=== PATIENT | female | born 1970 | race Caucasian/White ===

== ENCOUNTER 2017-05-30 17:00 | Emergency (ER) | payer MEDICAID ==
[2017-05-30 17:07] VITALS: TEMP 98.4
--- NOTE | 2017-05-30 17:50 | EDPHY ---
H & P Stated Complaint: Pian in left calf, concerned about a DVT. Time Seen by Provider: 05/30/17 17:50 HPI/ROS: CHIEF COMPLAINT: Left calf pain, family history of DVT HISTORY OF PRESENT ILLNESS: The patient presents to the ED with a several day history of left calf pain. The patient reports no history of trauma. Her symptoms are worsened with movement and exertion. She denies any associated numbness or weakness. The patient reports her mother has a history of PE. She has never been screen for familial hypercoagulable states. She denies prolonged immobilization. She denies recent surgery. The patient denies significant past medical history. She denies additional acute complaints. She rates the pain in her calf is a 1/10. REVIEW OF SYSTEMS: A comprehensive 10 point review of systems is otherwise negative aside from elements mentioned in the history of present illness. Source: Patient Exam Limitations: No limitations - Personal History LMP (Females 10-55): Now Current Tetanus Diphtheria and Acellular Pertussis (TDAP): Yes - Medical/Surgical History Hx Asthma: No Hx Chronic Respiratory Disease: No Hx Diabetes: No Hx Cardiac Disease: No Hx Renal Disease: No Hx Cirrhosis: No Hx Alcoholism: No Hx HIV/AIDS: No Hx Splenectomy or Spleen Trauma: No Other PMH: ANXIETY/DEPRESSION - Social History Smoking Status: Never smoked - Physical Exam Exam: General Appearance: Alert, no distress Eyes: Pupils equal and round no pallor or injection ENT, Mouth: Mucous membranes moist Respiratory: There are no retractions, lungs are clear to auscultation Cardiovascular: Regular rate and rhythm Gastrointestinal: Abdomen is soft and nontender, no masses, bowel sounds normal Neurological: 5/5 strength all 4 extremities, sensation grossly intact to light touch Skin: Warm and dry, no rashes Musculoskeletal: Neck is supple nontender Extremities: Tenderness to palpation left calf, no asymmetry, 2+ dorsalis pedis and posterior tibial pulses noted bilaterally Constitutional: Initial Vital Signs Temperature (C) 36.9 C 05/30/17 17:05 Heart Rate 96 05/30/17 17:05 Respiratory Rate 16 05/30/17 17:05 Blood Pressure 128/90 H 05/30/17 17:05 O2 Sat (%) 95 05/30/17 17:05 O2 Delivery Mode Room Air Allergies/Adverse Reactions: morphine Allergy (Verified 07/26/15 12:57) Home Medications: Medication Instructions Recorded traZODONE 07/26/15 Medical Decision Making - Diagnostics Imaging Results: Imaging Impressions Extremity Venous Study 05/30/17 17:50 Impression: No evidence of deep vein thrombosis in the left lower extremity. Results discussed with Dr. Wes Salomon. ED Course/Re-evaluation: The patient presents to the ED for evaluation of left calf pain. The patient had no appreciable asymmetry noted on exam. She is noted to have a brisk dorsalis pedis and posterior tibial pulse. She is neurologically intact. The patient was taken for lower extremity ultrasound which demonstrates no evidence of a DVT. The patient has been reassured at this point time. I have recommend a repeat ultrasound in 2 weeks for any ongoing symptoms. She should return to the ED sooner for increasing pain or other concerns. The patient was re- evaluated at 7:15 p.m. and is in no acute distress. She continues to be neurologically intact and understands her discharge instructions. Differential Diagnosis: Differential diagnosis considered includes myofascial strain, Aranda cyst, DVT, superficial thrombophlebitis Departure - Departure Disposition: Home, Routine, Self-Care Clinical Impression: Pain of left calf Condition: Good Instructions: Musculoskeletal Pain (ED) Additional Instructions: 1. Your ultrasound demonstrates no evidence of a DVT or other significant finding. 2. Tylenol and ibuprofen as needed for pain. 3. Please return to the ED for any increasing pain, swelling, redness, numbness , fever or other concerns. 4. I do recommend a repeat ultrasound in 2 weeks for any ongoing symptoms to exclude the development of a blood clot. 5. Please follow up with your primary care provider as needed Referrals: Vincent Russell MD [Primary Care Provider] - As per Instructions
[2017-05-30 19:23] VITALS: BP 135/70; PULSE 77; RESP 18; O2SAT 96
== END 2017-05-30 19:22 | disposition home or self-care (01) ==
DX: M79.605 Pain in left leg (principal)

== ENCOUNTER 2017-08-01 14:08 | Emergency (ER) | payer MEDICAID ==
--- NOTE | 2017-08-01 14:28 | EDPHY ---
H & P Stated Complaint: Left Flank Pain, Freq Urine Time Seen by Provider: 08/01/17 14:27 HPI/ROS: HPI: This is a 46-year-old female who presents with Chief Complaint: Left Flank Pain, Freq Urine Location: Left flank Quality: Sharp, pain Duration: Starting this morning Signs and Symptoms: no fever, + nausea, no vomiting, no hematemesis, no blood in stool, no abdominal bloating, no diarrhea, no back pain, + decreased urination, + urinary frequency, no burning with urination, no vaginal bleeding/ discharge, no indigestion, no chest pain, no shortness of breath Timing: Acute Severity: Moderate Context: Reports that she woke up this morning and had sudden onset of left flank, sharp, nonradiating pain has not stopped over the last 3-5 hour. She reports that she noticed that she has increased urinary frequency and decreased amount of urination. Denies burning with urination/hematuria. Reports that she has had a urinary tract infection in the past but has been sometime. Denies fever/vomiting/diarrhea. She did feel nauseous with the pain. No history of kidney stones. Patient had a bowel movement this morning. History of . [id number] pain medications with mild relief. Denies any recent injury or increased physical activity. No history of low back pain. Modifying Factors: See above Comment: ROS: see HPI Constitutional: No fever, no chills, no weight loss Eyes: No blurred vision Respiratory: No shortness of breath, no cough Cardiovascular: No chest pain, no palpitations Gastrointestinal: No nausea, no vomiting, no diarrhea, no hematemesis, no blood in stool Genitourinary: No dysuria, no blood in urine Extremities: No myalgias, no edema Neurologic: No weakness, no numbness Skin: No rashes, no petechiae Hematologic: No bruising, no bleeding MEDICAL/SURGICAL/SOCIAL HISTORY: Medical history: Anxiety, depression, hypothyroidism Surgical history: Denies Social history: Employed. . CONSTITUTIONAL: Nontoxic-appearing, polite and cooperative, adult white female awake and alert, no obvious distress HEENT: Atraumatic and normocephalic. NECK: supple, no midline tenderness, flexion 45 degrees, extension 45 degrees, right and left lateral flexion 45 degrees. No meningismus. Cardiovascular: Normal S1/S2, regular rate, regular rhythm, without murmur rub or gallop. PULMONARY/CHEST: Symmetrical and nontender. no crepitus. Clear to auscultation bilaterally. Good air movement. No accessory muscle usage. ABDOMEN: Soft, nondistended, mild left flank tenderness, bowel sounds hypoactive x4, no peritoneal signs, no organomegaly, no ecchymosis. PELVIC: no pain with rocking; bilateral hips flexion 125 degrees, extension 30 degrees, with no pain internal rotation and no pain external rotation. BACK: No midline tenderness, no paraspinous spasm, deep tendon reflexes 2/2, no pain with straight leg raise EXTREMITIES: 2/2 pulses, strength 5/5, DIP/PIP/MCP flexion/extension intact with good light touch sensation. no deformities, no clubbing, no cyanosis or edema. NEUROLOGICAL: no focal neuro deficits. GCS 15. Light touch sensation intact. SKIN: Warm and dry, no erythema. no rash. Good capillary refill. Source: Patient Exam Limitations: No limitations - Personal History LMP (Females 10-55): 8-14 Days Ago Current Tetanus Diphtheria and Acellular Pertussis (TDAP): Yes - Medical/Surgical History Hx Asthma: No Hx Chronic Respiratory Disease: No Hx Diabetes: No Hx Cardiac Disease: No Hx Renal Disease: No Hx Cirrhosis: No Hx Alcoholism: No Hx HIV/AIDS: No Hx Splenectomy or Spleen Trauma: No Other PMH: ANXIETY/DEPRESSION, Hypothyroid - Social History Smoking Status: Never smoked Constitutional: Initial Vital Signs Temperature (C) 37.4 C 08/01/17 14:21 Heart Rate 79 08/01/17 14:21 Respiratory Rate 18 08/01/17 14:21 Blood Pressure 128/98 H 08/01/17 14:21 O2 Sat (%) 97 08/01/17 14:21 O2 Delivery Mode Room Air Allergies/Adverse Reactions: morphine Allergy (Verified 07/26/15 12:57) Home Medications: Medication Instructions Recorded traZODONE 07/26/15 Cyclobenzaprine [Flexeril 10 MG 10 mg PO TID PRN #15 tab 08/01/17 (*)] Levothyroxine 08/01/17 Lidocaine 5% [Lidoderm 5% Patch 1 ea TD DAILY #6 patch 08/01/17 (*)] Medical Decision Making - Diagnostics Imaging Results: Imaging Impressions Abdomen/Pelvis CT 08/01/17 14:49 Impression: 1. No visible etiology for the patient's pain. 2. Fibroid uterus. 3. Diffuse fatty infiltration of the liver. 4. Additional findings, as above. Findings discussed with Rupinder Jerry on 08/01/2017 at 15:19. Attention: This CT examination is specifically designed to evaluate patients who are clinically suspected of having acute obstructive uropathy. This examination does not use radiographic contrast, and as such, provides only a limited evaluation of the abdomen, pelvis and retroperitoneum. If there is further clinical suspicion for pathological conditions other than obstructive uropathy, a complete CT evaluation of the abdomen and pelvis utilizing intravenous and oral contrast should be considered. ED Course/Re-evaluation: Labs, urinalysis, CT abdomen and pelvis scan without contrast, IV fluids, IV medications ordered Given 1 L normal saline, IV Toradol, IV Zofran Called by Radiology who advised that CT abdomen and pelvis scan is grossly unremarkable and shows no signs of acute intra-abdominal abnormality. No stone appreciated. + fibroid uterus. [employer] films show some stool in the area of pain. Urinalysis shows no signs of infection or blood. Labs reviewed and completely unremarkable. Patient believes that now she may have slept funny last night. Lidoderm patch applied. Patient is ambulatory without any deficits. No signs of neurovascular compromise/tenting of skin/compartment syndrome/extremities and joints examined above and below area of concern and are neurovascularly intact. Given muscle relaxers and advised to take NSAIDs. This patient was seen under the supervision of my primary supervising physician. I evaluated care for this patient independently. Differential Diagnosis: Abdominal pain including but not limited to appendicitis, cholecystitis, ureterolithiasis, abdominal gas, gastritis and urinary tract infection. - Data Points Laboratory Results: Laboratory Results 08/01/17 15:32 08/01/17 15:32 08/01/17 08/01/17 08/01/17 15:32 15:32 15:32 WBC 7.13 10^3/uL 10^3/uL (3.80-9.50) RBC 4.59 10^6/uL 10^6/uL (4.18-5.33) Hgb 15.1 g/dL g/dL (12.6-16.3) Hct 43.3 % % (38.0-47.0) MCV 94.3 fL fL (81.5-99.8) MCH 32.9 pg pg (27.9-34.1) MCHC 34.9 g/dL g/dL (32.4-36.7) RDW 12.4 % % (11.5-15.2) Plt Count 283 10^3/uL 10^3/uL (150-400) MPV 8.6 fL L fL (8.7-11.7) Neut % (Auto) 52.6 % % (39.3-74.2) Lymph % (Auto) 38.7 % % (15.0-45.0) [place] % (Auto) 7.0 % % (4.5-13.0) Eos % (Auto) 0.8 % % (0.6-7.6) Baso % (Auto) 0.8 % % (0.3-1.7) Nucleat RBC Rel Count 0.0 % % (0.0-0.2) Absolute Neuts (auto) 3.74 10^3/uL 10^3/uL (1.70-6.50) Absolute Lymphs (auto) 2.76 10^3/uL 10^3/uL (1.00-3.00) Absolute Monos (auto) 0.50 10^3/uL 10^3/uL (0.30-0.80) Absolute Eos (auto) 0.06 10^3/uL 10^3/uL (0.03-0.40) Absolute Basos (auto) 0.06 10^3/uL 10^3/uL (0.02-0.10) Absolute Nucleated RBC 0.00 10^3/uL 10^3/uL (0-0.01) Immature Gran % 0.1 % % (0.0-1.1) Immature Gran # 0.01 10^3/uL 10^3/uL (0.00-0.10) Sodium 140 mEq/L mEq/L (135-145) Potassium 4.4 mEq/L mEq/L (3.5-5.2) Chloride 101 mEq/L mEq/L (97-110) Carbon Dioxide 26 mEq/l mEq/l (22-31) Anion Gap 13 mEq/L mEq/L (8-16) BUN 13 mg/dL mg/dL (7-23) Creatinine 0.8 mg/dL mg/dL (0.6-1.0) Estimated GFR > 60 Glucose 99 mg/dL mg/dL (70-100) Calcium 10.0 mg/dL mg/dL (8.5-10.4) Total Bilirubin 0.6 mg/dL mg/dL (0.1-1.4) Conjugated Bilirubin 0.2 mg/dL mg/dL (0.0-0.5) Unconjugated Bilirubin 0.4 mg/dL mg/dL (0.0-1.1) AST 25 IU/L IU/L (14-46) ALT 41 IU/L IU/L (9-52) Alkaline Phosphatase 27 IU/L L IU/L (38-126) Total Protein 7.2 g/dL g/dL (6.3-8.2) Albumin 4.6 g/dL g/dL (3.5-5.0) Beta HCG, Qual NEGATIVE Urine Color Urine Appearance Urine pH Ur Specific [place] Urine Protein Urine Ketones Urine Blood Urine Nitrate Urine Bilirubin Urine Urobilinogen Ur Leukocyte Esterase Urine Glucose 08/01/17 14:25 WBC RBC Hgb Hct MCV MCH MCHC RDW Plt Count MPV Neut % (Auto) Lymph % (Auto) [place] % (Auto) Eos % (Auto) Baso % (Auto) Nucleat RBC Rel Count Absolute Neuts (auto) Absolute Lymphs (auto) Absolute Monos (auto) Absolute Eos (auto) Absolute Basos (auto) Absolute Nucleated RBC Immature Gran % Immature Gran # Sodium Potassium Chloride Carbon Dioxide Anion Gap BUN Creatinine Estimated GFR Glucose Calcium Total Bilirubin Conjugated Bilirubin Unconjugated Bilirubin AST ALT Alkaline Phosphatase Total Protein Albumin Beta HCG, Qual Urine Color YELLOW Urine Appearance CLEAR Urine pH 7.0 (5.0-7.5) Ur Specific [place] 1.025 (1.002-1.030) Urine Protein NEGATIVE (NEGATIVE) Urine Ketones NEGATIVE (NEGATIVE) Urine Blood NEGATIVE (NEGATIVE) Urine Nitrate NEGATIVE (NEGATIVE) Urine Bilirubin NEGATIVE (NEGATIVE) Urine Urobilinogen NEGATIVE EU EU (0.2-1.0) Ur Leukocyte Esterase NEGATIVE (NEGATIVE) Urine Glucose NEGATIVE (NEGATIVE) Departure - Departure Disposition: Home, Routine, Self-Care Clinical Impression: Acute left flank pain, Musculoskeletal back pain Fibroid uterus Qualifiers: Uterine leiomyoma location: unspecified location Qualified Code(s): D25.9 - Leiomyoma of uterus, unspecified Condition: Good Instructions: Muscle Strain (ED), Musculoskeletal Pain (ED) Additional Instructions: Take Tylenol 650 mg every 4 hours and/or Ibuprofen 600 mg every 8 hours with food as needed for pain. Use Flexeril every 8 hours as needed for muscle spasm. Apply Lidoderm patch in the area of most discomfort for 12 hr at a time. Drink plenty of fluids, exercise regularly and stay active, eat a high-fiber diet with lots of fruits and vegetables, take MiraLax daily as needed for constipation. Referrals: Verenice Dobson MD [Primary Care Provider] - As per Instructions Prescriptions: Cyclobenzaprine [Flexeril 10 MG (*)] 10 mg PO TID PRN #15 tab PRN Reason: Spasms Lidocaine 5% [Lidoderm 5% Patch (*)] 1 ea TD DAILY #6 patch
[2017-08-01] MEDS ORDERED: NS 1,000 ML IV ONE (14:49)
[2017-08-01] MEDS ORDERED: KETOROLAC 30 MG/1 ML SDV IVP ONE (14:49)
[2017-08-01] MEDS ORDERED: ONDANSETRON 4 MG/2 ML VIAL IVP ONE (14:49)
[2017-08-01 15:41] LABS: PLATELET COUNT 283 10^3/uL (150-400)
[2017-08-01] MEDS ORDERED: LIDOCAINE 4%/MENTHOL 1% PATCH TD ONE (15:59)
[2017-08-01 16:40] VITALS: BP 119/79; PULSE 80; RESP 16; TEMP 99; O2SAT 96
[2017-08-01] MEDS ORDERED: PATCH REMOVAL 1 EA PATCH TD SCH (21:00)
== END 2017-08-01 16:37 | disposition home or self-care (01) ==
DX: R10.9 Unspecified abdominal pain (principal); M54.9 Dorsalgia, unspecified; D25.9 Leiomyoma of uterus, unspecified; E86.9 Volume depletion, unspecified
CPT/HCPCS: 96374; J1885; J2405

== ENCOUNTER → 2017-08-16 | Outpatient (CLI) | payer MEDICAID | LOC: FIMAGING 13:22 | PROVIDERS: ATTEND Family Medicine | DX: Z12.31 Encounter for screening mammogram for malignant neoplasm of breast (principal) ==

== ENCOUNTER → 2017-08-24 | Outpatient (CLI) | payer MEDICAID ==
[~2017-08-24] MED LIST: GADOBUTROL 10 ML VIAL IVP ONE
== END ==
LOC: FIMAGING 15:54
PROVIDERS: ATTEND Family Medicine
DX: E22.1 Hyperprolactinemia (principal)
CPT/HCPCS: A9585